=== PATIENT | female | born 1980 | race Caucasian/White ===

== ENCOUNTER 2018-04-20 19:26 | Emergency (ER) | payer BC ==
[~2018-04-20] VITALS: Ht 170.2 cm; Wt 84.1 kg
[2018-04-20] MEDS ORDERED: ULTRAM50 MG (19:32)
[2018-04-20] MEDS ORDERED: GABAPENTIN100 MG PO (19:32)
[2018-04-20] MEDS ORDERED: TOPROL XL25 MG (19:32)
[2018-04-20] MEDS ORDERED: CELEXA10 MG PO (19:33)
[2018-04-20] MEDS ORDERED: NEXIUM20 MG (19:33)
[2018-04-20 20:05] LABS: BASOPHILS 0.5 % (0-2); HEMATOCRIT 35.9 % (36.0-48.0); HEMOGLOBIN 10.9 g/dL (12-16); IMMATURE GRANULOCYTES 0.1 % (0-5); LYMPHOCYTES 38.8 % (15-50); MCHC 30.4 g/dL (31.0-37.0); MCV 72.4 fL (80.0-100.0); MEAN PLATELET VOLUME 10.7 fL (7.4-10.4); MONOCYTES 7.7 % (2-11); NEUTROPHILS 49.9 % (40-80); RBC 4.96 10x6/uL (4.00-5.40); RDW 16.6 % (11.5-14.5); WBC 7.4 10x3/uL (4.8-10.8)
[2018-04-20 20:32] LABS: PLATELET COUNT 320 10x3/uL (130-400)
[2018-04-20 20:34] LABS: ALBUMIN 3.8 g/dL (3.4-5.0); ALKALINE PHOSPHATASE 94 U/L (46-116); ALT (SGPT) 20 U/L (10-68); BILIRUBIN - TOTAL 0.17 mg/dL (0.2-1.3); CALC OSMOLALITY 270 mosm/kg (275-300); CALCIUM 8.8 mg/dL (8.5-10.1); CARBON DIOXIDE 28.8 mmol/L (21.0-32.0); CHLORIDE - SERUM 101 mmol/L (98-107); CREATININE - SERUM 0.8 mg/dL (0.6-1.3); GLUCOSE 83 mg/dL (74-106); POTASSIUM - SERUM 3.3 mmol/L (3.5-5.1); PROTEIN - SERUM 7.7 g/dL (6.4-8.2); SODIUM 137 mmol/L (136-145); UREA NITROGEN 6 mg/dL (7-18); eGFR NON AFRICAN AMERICAN 85 mL/min (90-120)
[2018-04-20 20:45] LABS: CKMB 0.6 U/L (0.0-3.6); CREATINE KINASE 67 UL (21-215); PRO BNP 114 pg/mL (0-125); TROPONIN-I < 0.017 ng/mL (0.000-0.060)
[2018-04-20 20:47] LABS: INR 1.01 (0.85-1.17); PROTIME 12.9 SECONDS (11.6-15.0)
[2018-04-20 20:48] LABS: APTT 27.9 SECONDS (22.8-39.4)
[2018-04-29] MEDS ORDERED: RYTHMOL SR225 MG PO (11:58)
== END 2018-04-20 21:58 | disposition home or self-care (01) ==
LOC: D.ER 19:26
PROVIDERS: Family Medicine
DX: I49.3 Ventricular premature depolarization (principal); E87.6 Hypokalemia; Z95.0 Presence of cardiac pacemaker; I45.10 Unspecified right bundle-branch block

== ENCOUNTER → 2018-04-29 15:21 | Outpatient (CLI) | payer BC ==
[~2018-04-29] VITALS: Ht 170.2 cm; Wt 84.1 kg
--- NOTE | ~2018-04-29 | HEMODYNAMI ---
PATIENT:AMADEO MERCADO MEDICAL RECORD: [id number] : 78 LOCATION:[facility] ADMISSION DATE: 04/29/18 Generatedon:04/29/201814:10 Patient name: AMADEO MERCADO Patient #: [id number] SSN: : 1980 Date of study: 04/29/2018 Page: Of Hemodynamic Procedure Report Patient Data Patient Demographics Procedure consent was obtained First Name: AMADEO Gender: Female Last Name: ROGELIO : 1980 Middle Initial: M Age: 38 year(s) Patient #: [id number] Race: Unknown Additional ID: [id number] Contact details Address: [address] [place] [address] [place] State: [place] City[facility] Zip code: [address] Past Medical History Allergies Allergen Reaction Date Comments Reported Codeine 04/29/2018 Admission Admission Data Admission Date: 04/29/2018 Admission Time: 13:30 Height (in.): 5.7 BSA: 0.33 (m2) Height (cm.): 14.48 BMI: 4068.24 (kg/m2) Weight (lbs.): 188 Weight (kg.): 85.28 Lab Results Lab Result Date: 04/29/2018 Lab Result Time: 0:00 Biochemistry Name Units Result Min Max BUN mg/dl 5 -*(----)-- 7 18 Creatinine mg/dl 0.9 --(-*--)-- 0.6 1.3 CBC Name Units Result Min Max Hemoglobin g/dl 10.8 *-(----)-- 13.5 17.5 Procedure Procedure Types Cath Procedure Diagnostic Procedure PPM/ICD Permanent Pacer Generator Exg. Sedation Charges Moderate Sedation up to 15 minutes Procedure Description Procedure Date Procedure Date: 04/29/2018 Procedure Start Time: 13:44 Procedure Staff Name Function Jose Pena RN Nurse Blaze Watkins MD Performing Physician Fuad Dominguez MD Assisting physician Lauren Tee RT Monitor Andie Carlos RT Scrub Procedure Data Cath Procedure Estimated blood loss: 10 ml Procedure Complications No complications Procedure Medications Medication Administration Route Dosage Oxygen etCO2 Nasal cannula 2 l/min Lidocaine 1% with added to field 20 ml Epi Ancef Irrigation Topical 1 g (1gm/500ml NS) Ancef (1Gm/50ml NS) I.V.P.B 1 g Versed I.V. 2 mg Fentanyl I.V. 100 mcg Versed I.V. 2 mg Fentanyl I.V. 100 mcg Versed I.V. 2 mg Hemodynamics Rest BSA: 0.33 (m2) HGB: 10.8 (g/dl) O2 Consumption: Estimated: 34.61 (ml/min) O2 Con sumption indexed: Estimated:104.88 (ml/min/m) Heart Rate: 77 (bpm) Snapshots Pre Cath Intra NCS Post Cath Vital Signs Time Heart Resp SPO2 etCO2 NIBP (mmHg) Rhythm Pain Sedation Rate (ipm) (%) (mmHg) Status Level (bpm) 13:21:32 82 39 100 0 124/91(107) NSR 0 (11) 10(A) , No pain 13:26:12 75 14 100 0 124/86(107) NSR 0 (11) 10(A) , No pain 13:30:51 79 13 94 0 113/67(92) NSR 0 (11) 10(A) , No pain 13:35:29 73 13 99 0 122/82(104) NSR 0 (11) 10(A) , No pain 13:40:08 71 16 98 0 126/75(101) NSR 0 (11) 10(A) , No pain 13:44:49 84 15 99 0 117/80(101) NSR 0 (11) 10(A) , No pain 13:49:27 241 16 98 0 116/78(90) NSR 0 (11) 10(A) , No pain 13:54:08 90 16 97 0 114/71(94) NSR 0 (11) 10(A) , No pain 13:58:44 82 16 97 0 105/66(80) NSR 0 (11) 10(A) , No pain 14:03:23 94 16 95 0 107/66(85) NSR 0 (11) 10(A) , No pain Medications Time Medication Route Dose Verified Delivered Reason Notes Effectiv eness by by 13:29:22 Oxygen etCO2 2 Fuad Garcia used for Nasal l/min Alberto Pena RN procedure cannula 13:29:53 Lidocaine added 20 ml Fuad Merida used for 1% with Epi to Alberto Dominguez MD procedure field 13:30:14 Ancef Topical 1 g Fuad Yañezie used for Irrigation Alberto Pena RN procedure (1gm/500ml NS) 13:30:34 Ancef I.V.P.B 1 g Fuad Yañezie used for (1Gm/50ml Alberto Pena RN procedure NS) 13:43:56 Versed I.V. 2 mg Fuad Yañezie for Alberto Pena RN sedation 13:44:03 Fentanyl I.V. 100 Fuad Buffie for mcg Alberto Pena RN sedation 13:48:47 Versed I.V. 2 mg Fuad Buffie for Alberto Pena RN sedation 13:48:50 Fentanyl I.V. 100 Fuad Yañezie for mcg Alberto Pena RN sedation 13:53:04 Versed I.V. 2 mg Fuad Yañezie for Alberto Pena RN sedation Procedure Log Time Note 13:04:32 Signed procedure consent form obtained from patient. 13:04:35 Time tracking: Regular hours (M-F 7:00 - 5:00) 13:04:40 Plan of Care:Hemodynamics will remain stable., Cardiac rhythm will remain stable., Comfort level will be maintained., Respiratory function will remain adequate., Patient/ family verbilizes understanding of procedure., Procedure tolerated without complication., Recovers from procedure without complications.. 13:05:27 H&P Date Dictated: 04/21/2018 Within 30 days and on chart., H&P Addendum completed by physician on day of procedure. (MUST COMPLETE FOR ALL OUTPATIENTS). 13:06:24 Patient allergic to Codeine 13:06:32 Patient Height : 5.7 inches 13:06:38 Patient Weight : 188 lbs 13:07:25 Jose Pena RN sent for patient. Start room use. 13:08:53 Lab Result : Creatinine 0.9 mg/dl 13:08:53 Lab Result : BUN 5 mg/dl 13:08:53 Lab Result : Hemoglobin 10.8 g/dl 13:13:44 Patient received from Pre/Post Procedure Room to CCL 1 Alert and oriented. Tansferred to table in Supine position. 13:13:45 Warm blankets applied, and norma hugger turned on for patient comfort. 13:13:46 Correct patient and procedure confirmed by team. 13:13:47 ECG and BP/O2 sat monitors applied to patient. 13:20:42 Vital chart was started 13:20:43 Baseline sample Acquired. 13:20:48 Rhythm: sinus rhythm , paced 13:20:50 Full Disclosure recording started 13:20:50 Pre-procedure instructions explained to patient. 13:20:50 Pre-op teaching completed and patient verbalized understanding. 13:20:54 Family in patients room. 13:20:55 Patient NPO since Midnight. 13:20:58 Is the patient allergic to Iodine/contrast media? No. 13:21:23 Is patient on blood thinner?No 13:21:25 Patient diabetic? No. 13:21:29 Previous problem with sedation/anesthesia? No ? 13:21:31 Snore? Yes 13:21:31 Sleep apnea? No 13:21:33 Deviated septum? No 13:21:34 Opens mouth fully? Yes 13:21:34 Sticks out tongue? Yes 13:21:36 Airway obstruction? No ? 13:21:38 Dentures? No ? 13:21:43 Patient pain scale 0/10 ?. 13:21:48 IV patent on arrival in left hand with 0.9% NaCl at O. 13:21:52 Lab results completed and on chart. 13:25:42 Left neck area was prepped with chlora-prep and draped in sterile fashion 13:25:44 Alarms reviewed by R. N. 13:25:44 Sharps counted by scrub and verified by R.N. 13:29:22 Oxygen 2 l/min etCO2 Nasal cannula was administered by Jose Pena RN; used for procedure; 13:29:53 Lidocaine 1% with Epi 20 ml added to field was administered by Fuad Dominguez MD; used for procedure; 13:30:14 Ancef Irrigation (1gm/500ml NS) 1 g Topical was administered by Jose Pena RN; used for procedure; 13:30:34 Ancef (1Gm/50ml NS) 1 g I.V.P.B was administered by Jose Pena RN; used for procedure; 13:32:17 [employer] representative CASTANEDAON LAWSON present for procedure. 13:33:21 Mepilex Dressing ([id number]) opened to sterile field. 13:33:28 5-0 Monocryl PS3 [id number] opened to sterile field. 13:33:50 3-0 Vicryl Multipack [id number] opened to sterile field. 13:33:52 3-0 Vicryl Single Pack [id number] opened to sterile field. 13:34:02 2-0 Ticron Multipack ([id number]) opened to sterile field. 13:40:13 Physician arrived 13:40:14 --------ALL STOP TIME OUT------ 13:40:14 Final Timeout: patient, procedure, and site verified with staff and physician. All members of the team are in agreement. 13:40:35 Left chest site verified by team. 13:40:42 Physical assessment completed. ASA score P 2 - A patient with mild systemic disease as per Fuad Dmoinguez MD. 13:40:49 Sedation plan: IV Moderate Sedation Medication:Versed, Fentanyl 13:43:42 Pre sharps counted by scrub and verified by RN: Sutures: 15; Sponges: 5; Stick needles: 0; Skin needles: 2; Blade: 1; Cautery: 1 13:43:48 Grounding pad site Left thigh. 13:43:50 Grounding pad site free from injury. 13:43:56 Versed 2 mg I.V. was administered by Jose Pena RN; for sedation; 13:44:03 Fentanyl 100 mcg I.V. was administered by Jose Pena RN; for sedation; 13:44:13 Lidocaine 1% w/epi was administered to left subclavicular area by Fuad Dominguez MD . 13:45:44 Incision made to left subclavicular area. 13:48:47 Versed 2 mg I.V. was administered by Jose Pena RN; for sedation; 13:48:50 Fentanyl 100 mcg I.V. was administered by Jose Pena RN; for sedation; 13:51:55 Ventricular lead tested. 13:52:20 Atrial lead tested. 13:53:04 Versed 2 mg I.V. was administered by Jose Pena RN; for sedation; 13:53:14 PPM Dual was removed.. 13:53:27 PPM Dual was inserted subcutaneously to left chest. 13:54:32 Atrial lead attachment was completed with 2-0 ticron. 13:54:36 Ventricular lead attachment was completed with 2-0 ticron. 13:54:43 Generator was sutured in place with 2-0 ticron. 13:56:27 Device pocket was irrigated with Ancef. 13:56:35 Subcutaneous closure was completed with 3-0 vicryl plus. 13:57:53 Skin closure was completed with 5-0 monocryl. 13:59:50 Medtronic Advisa MRI PPM Dual Generator [id number] opened to sterile field. 14:02:23 Lt Chest incision was dressed with Mepilex dressing. 14:02:33 Procedure ended.(Physican Out) 14:03:52 Post sharps counted by scrub and verified by RN: Sutures: 15; Sponges: 5; Stick needles: 0; Skin needles: 2; Blade: 1; Cautery: 1 14:05:09 Sharps counted by scrub and verified by R.N. 14:05:13 Post-procedure physical assessment completed. ASA score P 2 - A patient with mild systemic disease as per Blaze Watkins MD. 14:05:22 Post procedure rhythm: sinus rhythm , paced 14:05:24 Estimated blood loss: 10 ml 14:05:25 Post procedure instruction explained to patient.Patient verbalizes understanding. 14:05:25 Patient needs reinforcement of post procedure teaching. 14:05:46 Procedure type changed to Cath procedure, Diagnostic procedure, PPM/ICD, Permanent Pacer Generator Exg., Sedation Charges, Moderate Sedation up to 15 minutes 14:05:58 Procedure and supply charges have been captured, reviewed, submitted and are correct. 14:06:00 Procedure Complication : No complications 14:06:02 Vital chart was stopped 14:06:02 See physician's report for complete and final results. 14:06:04 Report given to Pre/Post Procedure Room. 14:06:06 Patient transfered to Pre/Post Procedure Room with Bed. 14:06:48 End room use (Document Last) 14:08:19 Parameters-- Generator: Mode: AAIR/DDDR. Lower Rate: 60bpm. Upper Rate: 130bpm. 14:09:16 Parameters--Ventricular P/R Wave: 17mV. Current: ?mA; Threshold: 1.5V; Impedence: 870OHMS. 14:09:36 Parameters--Atrial P/R Wave: 1.4mV. Current: ?mA; Threshold: .3V; Impedence: 509OHMS. Device Usage Item Name Manufacture Quantity Catalog Hospital Part Current Minimal Lot# / Serial# Number Charge Number Stock Stock Code Mepilex Cardinal 1 [id number] 5 Dressing Health ([id number]) 5-0 Monocryl Ethicon 1 [id number] 645383 335861 5 PS3 [id number] 3-0 Vicryl Ethicon 1 [id number] 321007 409849 138165 5 Multipack [id number] 3-0 Vicryl Ethicon 1 [id number] 204325 438446 5 Single Pack [id number] 2-0 Ticron Ethicon 3 [id number] 113130 89481 932251 5 Multipack ([id number]) Medtronic Medtronic 1 [id number] [id number] 5 [id number] Advisa MRI EXP:2019-07-30 PPM Dual [id number] Generator [id number] Signature Audit [place] Stage Time Signature Unsigned Intra-Procedure 04/29/2018 Lauren Tee 2:10:02 PM RT(R) Signatures Monitor : Lauren Tee Signature : RT Date : Time : [place] [id number] [place] [address]
--- NOTE | ~2018-04-29 | OP ---
PATIENT NAME: AMADEO MERCADO MEDICAL RECORD: [id number] :78 LOCATION:D[facility] ADMISSION DATE: SURGEON: FUAD VALADEZ MD DATE OF OPERATION: 04/29/2018 PREOPERATIVE DIAGNOSES: 1. End-of-life generator. 2. Supraventricular tachycardia. POSTOPERATIVE DIAGNOSES: 1. End-of-life generator. 2. Supraventricular tachycardia. PROCEDURE: Left subclavian vein pacemaker generator exchange. SURGEON: Fuad Valadez MD REPORT OF PROCEDURE: The patient's left chest was prepped and draped in sterile fashion. A 25 mL of 1% lidocaine with epinephrine was infused in the surrounding tissues. A transverse incision was made overlying the indwelling pacemaker. This pacemaker was cut free from its suture attachments and was eviscerated through the wound. We disconnected the pacemaker and tested both leads, which appeared to be functioning appropriately. The new pacemaker generator was affixed to the leads and was placed in the subcutaneous pouch. This was sutured down with a single interrupted 0 Ti-Cron. The subcutaneous tissues were then reapproximated with interrupted 3-0 Vicryl and the skin was closed with running subcutaneous 5-0 Monocryl. COMPLICATIONS: None. CONDITION: Stable. ANESTHESIA: Local MAC. BLOOD LOSS: Minimal. TRANSINT:[id number] Voice Confirmation ID: [id number] DOCUMENT ID: [id number] FUAD VALADEZ MD CC: [id number] DICTATION DATE: 04/29/18 1405 UNDERGROUND HEAVY EQUIPMENT OPERATOR: 04/29/18 1414 PRE [facility] [address] [place] [address]
[2018-04-29 12:12] VITALS: BP 135/94; Ht 170.2 cm; Wt 84.1 kg
[2018-04-29 12:17] LABS: HEMATOCRIT 34.9 % (36.0-48.0); HEMOGLOBIN 10.8 g/dL (12-16); MCH 22.1 pg (26.0-34.0); MCHC 30.9 g/dL (31.0-37.0); MCV 71.5 fL (80.0-100.0); MEAN PLATELET VOLUME 10.4 fL (7.4-10.4); RBC 4.88 10x6/uL (4.00-5.40); RDW 16.7 % (11.5-14.5); WBC 5.6 10x3/uL (4.8-10.8)
[2018-04-29 12:39] LABS: ANION GAP 12.9 mmol/L (8-16); CALCIUM 8.7 mg/dL (8.5-10.1); CARBON DIOXIDE 27.8 mmol/L (21.0-32.0); CREATININE - SERUM 0.9 mg/dL (0.6-1.3); POTASSIUM - SERUM 3.7 mmol/L (3.5-5.1)
[2018-04-29 13:03] LABS: APTT 26.6 SECONDS (22.8-39.4); INR 1.04 (0.85-1.17); PROTIME 13.2 SECONDS (11.6-15.0)
[~2018-04-29 15:21] MED LIST: CELEXA10 MG PO; GABAPENTIN100 MG PO; NEXIUM20 MG; RYTHMOL SR225 MG PO; TOPROL XL25 MG; ULTRAM50 MG
== END | disposition home or self-care (01) ==
LOC: D.CATH 13:30
PROVIDERS: Internal Medicine Interventional Cardiology
DX: Z45.010 Encounter for checking and testing of cardiac pacemaker pulse generator [battery] (principal); I47.1 Supraventricular tachycardia; Z87.891 Personal history of nicotine dependence; K21.9 Gastro-esophageal reflux disease without esophagitis; Z01.810 Encounter for preprocedural cardiovascular examination; Z01.811 Encounter for preprocedural respiratory examination; Z01.812 Encounter for preprocedural laboratory examination

== ENCOUNTER → 2020-03-15 09:17 | Outpatient (CLI) | payer MEDICARE ==
[2018-04-29 12:12] VITALS: BMI 29.0
--- NOTE | 2020-03-16 09:27 | EC ---
PATIENT:AMADEO MERCADO DATE OF SERVICE: 03/15/20 SEX: F MEDICAL RECORD: [id number] DATE OF : [birth year] [facility] AGE OF PATIENT: 40 ADMISSION DATE: 03/15/20 REFERRING PHYSICIAN: INTERPRETING PHYSICIAN: ALEIDA KRISHNAMURTHY MD ECHOCARDIOGRAM REPORT ECHO CHARGES 4 ECHO COMPLETE Date: 03/15/20 CLINICAL DIAGNOSIS: PVC'S/ MITRAL AND TRICUSPID REGURG HX OF PACEMAKER ECHOCARDIOGRAPHIC MEASUREMENTS (adult normal given) AC root (d.<3.7cm) 3.3 cm LV Septum d (<1.2 cm> 1.4 cm Valve Excursion 1.4 cm LV Septum (systole) 1.5 cm Left Atria (s.<4.0cm> 3.4 cm LVPW d(<1.2cm) 1.3 cm RV (d.<2.3cm) 2.8 cm LVPW (sytole) 1.4 cm LV diastole(<5.6CM) 4.3 cm MV E-F(>70mm/sec) cm LV systole 3.1 cm LVOT Diameter 1.8 cm MV exc.(>10mm) 1.2 cm Est.ejection fraction (50-75%) % DOPPLER: LVIT cm/sec A 61.0 cm/sec E 78.0 cm/sec LA cm/sec RVSP 33 mmHg LVOT 103 cm/sec AOP1/2T m/s Asc. Ao 124 cm/sec RVOT 93 cm/sec RA cm/sec PA 107 cm/sec AV Gradient Peak 6.11 mmHg AV Mean 3.49 mmHg AV Area 2.0 cm MV Gradient Peak 3.22 mmHg MV Mean 1.14 mmHg MV Area cm COMMENTS: Segment Assembler: 2 EDEN IRVIN Network Systems Engineer: 3 Dr. Donnelly TAPE# PACS Pericardial Effusion N DATE OF SERVICE: Adequate 2D, color flow imaging, spectral Doppler and M-mode. Mild LVH. LV internal dimension is normal. Wall motion is normal. EF is greater than or equal to 55%. Aortic valve is tricuspid. No evidence of stenosis by Doppler interrogation. Left atrium is normal at 3.4 cm. Mitral valve shows no prolapse. Trace MR. Right sided chambers are grossly normal. Mild TR. ECHOCARDIOGRAM REPORT [id number] AMADEO MERCADO TRANSINT:[id number] Voice Confirmation ID: [id number] DOCUMENT ID: [id number] ALEIDA KRISHNAMURTHY MD at 0927 CC: [id number] DICTATION DATE: 03/15/20 161 ENDING MACHINE OPERATOR: 03/15/20 2309 DEP CLI 03/15/20 [place] [id number] [place] [id number]
== END | disposition home or self-care (01) ==
LOC: D.HCCECHO 09:17
PROVIDERS: ATTEND Internal Medicine Interventional Cardiology
DX: I05.9 Rheumatic mitral valve disease, unspecified (principal)